=== PATIENT | female | born 1985 | race Caucasian/White ===

== ENCOUNTER 2016-06-12 10:34 | Emergency (ER) | payer MEDICAID ==
[~2016-06-12 10:34] MED LIST: AMOXICILLIN875 MG PO; COLACE100 MG PO; IBUPROFEN800 MG PO; PERCOCET 5/3251 TAB PO; PRENATAL; PRENATAL1 EACH PO
[2016-06-12] MEDS ORDERED: NO HOME MEDICATION XX (10:49)
[2016-06-12] MEDS ORDERED: DEPO SHOT IM (10:51)
[2016-06-12 11:03] LABS: URINE BILIRUBIN NEGATIVE (NEG); URINE BLOOD LARGE (NEG); URINE GLUCOSE (UA) NEGATIVE (NEG); URINE KETONE NEGATIVE (NEG); URINE LEUKOCYTE ESTERASE POSITIVE (NEG); URINE NITRITE NEGATIVE (NEG); URINE PROTEIN MODERATE (NEG)
[2016-06-12 11:07] LABS: URINE APPEARANCE CLOUDY; URINE COLOR YELLOW
[2016-06-12 11:16] LABS: URINE WBC 100-120 /[HPF] (0-5)
[2016-06-12 11:17] LABS: URINE EPITHELIAL CELLS 0 /[HPF] (0-10); URINE MUCUS 1+
[2016-06-12] MEDS ORDERED: MACROBID 100 M100 M1 PO (11:25)
== END 2016-06-12 12:36 ==
LOC: EDMED 10:34
PROVIDERS: Emergency Medicine
DX: N39.0 Urinary tract infection, site not specified (principal); F17.200 Nicotine dependence, unspecified, uncomplicated